=== PATIENT | male | born 1980 | race Two or more races ===

== ENCOUNTER 2020-07-28 12:28 | Emergency (ER) | payer MEDICAID ==
[~2020-07-28] VITALS: Ht 188 cm; Wt 80.7 kg
[2020-07-28 12:49] VITALS: BP 127/59
--- NOTE | 2020-07-28 13:15 | NUR ---
ASIMX1
--- NOTE | 2020-07-28 13:30 | NUR ---
NILX2
--- NOTE | 2020-07-28 13:54 | NUR ---
NILX3
== END 2020-07-28 13:56 | disposition left against medical advice (07) ==
LOC: ED 12:45
DX: R07.89 Other chest pain (principal); Z53.21 Procedure and treatment not carried out due to patient leaving prior to being seen by health care provider

== ENCOUNTER 2020-07-28 23:08 | Emergency (ER) | payer MEDICAID ==
[~2020-07-28] VITALS: Ht 188 cm; Wt 80.0 kg
--- NOTE | 2020-07-29 00:51 | NUR ---
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
[2020-07-29] MEDS ORDERED: KETOROLAC 30 MG/1 ML ONE (01:09)
[2020-07-29] MEDS ORDERED: KETOROLAC 30 MG/1 ML IM ONE (01:30)
--- NOTE | 2020-07-29 01:48 | NUR ---
Break RN: medicated for pain. discharged with prescription and instruction. verbalized understanding.
[2020-07-29 01:50] VITALS: BP 124/71
== END 2020-07-29 01:52 | disposition home or self-care (01) ==
LOC: ED 07-29 01:10
DX: S20.214A Contusion of middle front wall of thorax, initial encounter (principal); G89.11 Acute pain due to trauma; F10.10 Alcohol abuse, uncomplicated; F12.10 Cannabis abuse, uncomplicated; F17.210 Nicotine dependence, cigarettes, uncomplicated; V86.96XA Unspecified occupant of dirt bike or motor/cross bike injured in nontraffic accident, initial encounter; Y93.89 Activity, other specified; Y92.89 Other specified places as the place of occurrence of the external cause; Y99.8 Other external cause status; Y90.9 Presence of alcohol in blood, level not specified
CPT/HCPCS: 71046; 96372; 99283; 99406; J1885

== ENCOUNTER 2021-02-23 15:54 | Emergency (ER) | payer MEDICAID ==
[~2021-02-23] VITALS: Ht 188 cm; Wt 74.3 kg
[2021-02-23 16:09] VITALS: BP 118/66
--- NOTE | 2021-02-23 17:18 | NUR ---
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
--- NOTE | 2021-02-23 18:04 | NUR ---
Break RN note: Pt provided warm blanket and water per request. Pt able to position himself for comfort in bed without difficulty. Awaiting ERP evaluation.
--- NOTE | 2021-02-23 18:07 | NUR ---
Break RN note: Rebeca VIDALES at bedside to evaluate pt.
[2021-02-23] MEDS ORDERED: KETOROLAC 30 MG/1 ML IM ONE (18:30)
[2021-02-23] MEDS ORDERED: CYCLOBENZAPRINE 10 MG TABLET PO ONE (18:30)
[2021-02-23] MEDS ORDERED: CYCLOBENZAPRINE 10 MG TABLET ONE (18:39)
[2021-02-23] MEDS ORDERED: KETOROLAC 30 MG/1 ML ONE (18:39)
== END 2021-02-23 19:39 | disposition home or self-care (01) ==
LOC: ED 18:16
DX: S39.012A Strain of muscle, fascia and tendon of lower back, initial encounter (principal); M62.830 Muscle spasm of back; X58.XXXA Exposure to other specified factors, initial encounter; Y93.89 Activity, other specified; Y92.89 Other specified places as the place of occurrence of the external cause; Y99.8 Other external cause status
CPT/HCPCS: 72110; 96372; 99283; J1885